=== PATIENT | male | born 1950 | race Caucasian/White ===

== ENCOUNTER 2017-08-27 08:31 | Observation (INO) ==
--- NOTE | 2017-08-27 08:42 | Emergency Department Note ---
Disposition Clinical Impression: Lower gastrointestinal hemorrhage Disposition: Admitted As Inpatient Condition: Fair General Adult HPI - General Chief complaint: ED GI Bleed Stated complaint: rectal bleeding Time Seen by Provider: 08/27/17 08:40 Source: patient Limitations: no limitations - History of Present Illness Pain Scale: 0 - Related Data Home Medications Medication Instructions Recorded Confirmed Allopurinol [Zyloprim 100 MG] 100 mg PO DAILY 08/27/17 08/27/17 Aspirin Enteric Coated [Aspirin EC] 325 mg PO DAILY 08/27/17 08/27/17 Atorvastatin [Lipitor] 10 mg PO HS 08/27/17 08/27/17 Clopidogrel [Plavix] 75 mg PO DAILY 08/27/17 08/27/17 Isosorbide MONOnitrate (24 HR) 60 mg PO DAILY 08/27/17 08/27/17 [Imdur] Lisinopril [Zestril] 5 mg PO DAILY 08/27/17 08/27/17 Lutein 20 mg PO DAILY 08/27/17 08/27/17 Metoprolol Succinate [Toprol Xl] 50 mg PO DAILY 08/27/17 08/27/17 Multivit-Min/FA/Lycopen/Lutein 1 tab PO DAILY 08/27/17 08/27/17 [Adults 50+ Multivitamin Tablet] Naproxen Sodium [All Day Pain 440 mg PO DAILY 08/27/17 08/27/17 Relief] Potassium Citrate [Urocit-K] 1 tab PO BID 08/27/17 08/27/17 Spironolactone [Aldactone] 12.5 mg PO DAILY 08/27/17 08/27/17 metFORMIN [Glucophage] 500 mg PO BIDWM 08/27/17 08/27/17 Allergies Allergy/AdvReac Type Severity Reaction Status Date / Time Hydromorphone [From Dilaudid] AdvReac Vomiting Verified 08/27/17 08:37 morphine AdvReac See Verified 08/27/17 08:37 Comments Oxycodone [From Percocet] AdvReac Hallucinati Verified 08/27/17 08:37 ng Past Medical History - Past Medical History Medical history: Reports: coronary artery disease, diabetes, hyperlipidemia, hypertension, kidney stones, myocardial infarction Psychiatric history: Reports: no psych history - Social History Smoking Status: Never smoker Smokeless Tobacco Status: No Alcohol use: Reports: none Drug use: Reports: none Physical Exam - General Limitations: no limitations General appearance: alert, in no apparent distress Course Vital Signs Temperature 97.7 F 08/27/17 08:33 Pulse Rate 83 08/27/17 08:33 Respiratory Rate 16 08/27/17 08:33 Blood Pressure 165/77 08/27/17 08:33 O2 Sat by Pulse Oximetry 98 08/27/17 08:33 Temperature 98.0 F 08/27/17 14:59 Pulse Rate 66 08/27/17 14:59 Respiratory Rate 14 08/27/17 14:59 Blood Pressure 124/77 08/27/17 14:59 O2 Sat by Pulse Oximetry 98 08/27/17 14:59 Oxygen Delivery Oxygen Delivery Room Air Medical Decision Making - Lab Data Result diagrams: 08/27/17 14:01 08/27/17 08:50 Lab Results 08/27/17 08/27/17 08/27/17 Range/Units 08:50 08:50 08:50 WBC 5.2 (4.3-11.1) K/mcL RBC 3.69 L (4.19-5.50) M/mcL Hgb 11.4 L (12.9-16.9) g/dL Hct 33.5 L (37.5-50.1) % MCV 90.8 (83.0-100.0) fL MCH 30.9 (28.0-33.3) pg MCHC 34.0 (31.6-35.5) g/dL RDW 13.7 (11.5-14.5) % Plt Count 159 (140-400) K/mcL MPV 9.6 (9.4-12.4) fL Immature Gran % 0.4 (0-4) % Seg Neutrophils % 75.2 % Lymphocytes % 15.2 % Monocytes % 7.7 % Eosinophils % 1.3 % Basophils % 0.2 % Neutrophils # 3.9 (1.6-8.9) K/mcL Lymphocytes # 0.8 (0.6-4.6) K/mcL Monocytes # 0.4 (0.0-1.3) K/mcL Eosinophils # 0.1 (0.0-0.6) K/mcL Basophils # 0.0 (0.0-0.2) K/mcL PT 10.9 (9.4-12.1) Seconds INR 1.0 APTT 24.2 L (26.0-36.0) Seconds Sodium 134 L (136-145) mEq/L Potassium 4.3 (3.5-5.1) mEq/L Chloride 108 H (98-107) mEq/L Carbon Dioxide 20 L (23-29) mEq/L BUN 26 H (8-23) mg/dL Creatinine 1.05 (0.70-1.30) mg/dL Est GFR ( Amer) > 60 (> 60) Est GFR (Non-Af Amer) > 60 (> 60) BUN/Creatinine Ratio 25 (6-26) Glucose 290 H (70-105) mg/dL Calculated Osmolality 293 (280-300) Calcium 8.7 (8.6-10.3) mg/dL Total Bilirubin 0.3 (0.3-1.0) mg/dL AST 17 (13-39) Units/L ALT 18 (7-52) Units/L Alkaline Phosphatase 55 (34-104) Units/L Serum Total Protein 6.1 L (6.4-8.9) g/dL Albumin 3.9 (3.5-5.7) g/dL Globulin 2.2 L (2.4-3.5) g/dL Albumin/Globulin Ratio 1.8 (1.1-2.2) Blood Type Antibody Screen 08/27/17 Range/Units 08:50 WBC (4.3-11.1) K/mcL RBC (4.19-5.50) M/mcL Hgb (12.9-16.9) g/dL Hct (37.5-50.1) % MCV (83.0-100.0) fL MCH (28.0-33.3) pg MCHC (31.6-35.5) g/dL RDW (11.5-14.5) % Plt Count (140-400) K/mcL MPV (9.4-12.4) fL Immature Gran % (0-4) % Seg Neutrophils % % Lymphocytes % % Monocytes % % Eosinophils % % Basophils % % Neutrophils # (1.6-8.9) K/mcL Lymphocytes # (0.6-4.6) K/mcL Monocytes # (0.0-1.3) K/mcL Eosinophils # (0.0-0.6) K/mcL Basophils # (0.0-0.2) K/mcL PT (9.4-12.1) Seconds INR APTT (26.0-36.0) Seconds Sodium (136-145) mEq/L Potassium (3.5-5.1) mEq/L Chloride (98-107) mEq/L Carbon Dioxide (23-29) mEq/L BUN (8-23) mg/dL Creatinine (0.70-1.30) mg/dL Est GFR ( Amer) (> 60) Est GFR (Non-Af Amer) (> 60) BUN/Creatinine Ratio (6-26) Glucose (70-105) mg/dL Calculated Osmolality (280-300) Calcium (8.6-10.3) mg/dL Total Bilirubin (0.3-1.0) mg/dL AST (13-39) Units/L ALT (7-52) Units/L Alkaline Phosphatase (34-104) Units/L Serum Total Protein (6.4-8.9) g/dL Albumin (3.5-5.7) g/dL Globulin (2.4-3.5) g/dL Albumin/Globulin Ratio (1.1-2.2) Blood Type O POSITIVE Antibody Screen NEGATIVE Attestation Statement - Attestation Attestation: I examined this patient and my medical decision-making was reviewed with the Resident Physician. I agree with the documented findings, disposition and treatment plan as described except to the extent set forth below. [id number] time provided Triage note and vitals reviewed by me. Patient presents with bright red blood per rectum. He takes Plavix. Ambulatory to the treatment area without evidence of acute distress. Normotensive and not tachycardic
[2017-08-27 09:03] LABS: Basophils % 0.2 %; Eosinophils # 0.1 K/mcL (0.0-0.6); Eosinophils % 1.3 %; Hematocrit 33.5 % (37.5-50.1); Hemoglobin 11.4 g/dL (12.9-16.9); Immature Granulocytes % 0.4 % (0-4); Lymphocytes # 0.8 K/mcL (0.6-4.6); Lymphocytes % 15.2 %; Mean Corpuscular Hemoglobin 30.9 pg (28.0-33.3); Mean Corpuscular Volume 90.8 fL (83.0-100.0); Mean Platelet Volume 9.6 fL (9.4-12.4); Monocytes # 0.4 K/mcL (0.0-1.3); Monocytes % 7.7 %; Neutrophils # 3.9 K/mcL (1.6-8.9); Platelet Count 159 K/mcL (140-400); Red Blood Count 3.69 M/mcL (4.19-5.50); Red Cell Distribution Width 13.7 % (11.5-14.5); Segmented Neutrophils % 75.2 %
[2017-08-27 09:08] LABS: Prothrombin Time 10.9 Seconds (9.4-12.1)
[2017-08-27 09:10] LABS: Activated Partial Thrombo Time 24.2 Seconds (26.0-36.0)
[2017-08-27 09:26] LABS: Alanine Aminotransferase 18 Units/L (7-52); Albumin 3.9 g/dL (3.5-5.7); Alkaline Phosphatase 55 Units/L (34-104); Aspartate Amino Transferase 17 Units/L (13-39); BUN/Creatinine Ratio 25 (6-26); Bilirubin,Total 0.3 mg/dL (0.3-1.0); Blood Urea Nitrogen 26 mg/dL (8-23); Calcium 8.7 mg/dL (8.6-10.3); Carbon Dioxide 20 mEq/L (23-29); Chloride 108 mEq/L (98-107); Glucose 290 mg/dL (70-105); Osmolality,Calculated 293 (280-300); Potassium 4.3 mEq/L (3.5-5.1); Sodium 134 mEq/L (136-145); Total Protein 6.1 g/dL (6.4-8.9); eGFR For African Americans > 60 (> 60); eGFR For Non-African Americans > 60 (> 60)
[2017-08-27 09:27] LABS: Albumin/Globulin Ratio 1.8 (1.1-2.2); Globulin 2.2 g/dL (2.4-3.5)
--- NOTE | 2017-08-27 10:12 | Emergency Department Note ---
Disposition Clinical Impression: Lower gastrointestinal hemorrhage Disposition: Admitted As Inpatient Condition: Fair Referrals: Aidan Szymanski DO [Primary Care Provider] - Forms: ED Satisfaction Letter Time of Disposition: 10:42 GI Bleed HPI - General Chief complaint: ED GI Bleed Stated complaint: rectal bleeding Time Seen by Provider: 08/27/17 08:40 Source: patient Mode of arrival: ambulatory Limitations: no limitations Nursing Notes Reviewed: Yes Vital Signs Reviewed: Yes - History of Present Illness HPI Narrative: 59-year-old male presenting to the emergency department complaining of rectal bleeding. Patient states she has had 2-3 days of bright red blood per rectum he says it is in the toilet as well as on his stools. He has had no black stools. He did have an episode of this approximately one month ago so went away on its own he denied a colonoscopy. Last colonoscopy was 10 years ago this and was normal his for medication since then. He has had no abdominal surgeries. He has had no generalized weakness or not feeling well prior to this episode. He is mainly here just because of his increasing and rectal bleeding. Patient says he has no abdominal pain no chest pain or shortness of breath. He has no other complaints this time including fevers, chills, nausea, vomiting, headache, blurry vision, neck pain, back pain, pain or tingling on the arms or legs generalized weakness changes in bowel movements, pain with urination. - Related Data Allergies Allergy/AdvReac Type Severity Reaction Status Date / Time acetaminophen [From Percocet] AdvReac Hallucinati Verified 08/27/17 08:37 ng Hydromorphone [From Dilaudid] AdvReac Vomiting Verified 08/27/17 08:37 morphine AdvReac See Verified 08/27/17 08:37 Comments Oxycodone [From Percocet] AdvReac Hallucinati Verified 08/27/17 08:37 ng Review of Systems: 10 point review of systems done and negative unless otherwise stated in the history of present illness.y All systems ED: reviewed and negative except as stated. Review of Systems: As Per HPI Past Medical History - Past Medical History Attestation: Yes The following information was validated with the patient. Source: patient Medical history: Reports: coronary artery disease, diabetes, hyperlipidemia, hypertension, kidney stones, myocardial infarction Psychiatric history: Reports: no psych history - Social History Smoking Status: Never smoker Smokeless Tobacco Status: No Alcohol use: Reports: none Drug use: Reports: none Physical Exam - General Limitations: no limitations General appearance: alert, in no apparent distress - Head Head exam: atraumatic, normocephalic, normal inspection - Eye Eye exam: Present: normal appearance, PERRL, EOMI - ENT ENT exam: normal exam, normal oropharynx, mucous membranes moist - Neck Neck exam: Present: normal inspection, full ROM, trachea midline - Chest Chest inspection: Present: normal inspection, symmetric chest wall rise - Respiratory Respiratory exam: Present: normal lung sounds bilaterally - Cardiovascular Cardiovascular exam: Present: regular rate, normal rhythm, normal heart sounds - Abdominal Exam Abdominal exam: Present: soft, Non-Tender, normal bowel sounds. Absent: tenderness, distention, guarding, rebound, rigidity, heel tap sign - Rectal Exam Machine Set Up Operator present during exam: Yes Rectal exam: Present: normal inspection, normal rectal tone, heme (+) stool. Absent: black stool, fecal impaction, hemorrhoids, mass, tenderness - Extremities Exam Extremities exam: Present: normal inspection, full ROM. Absent: tenderness, pedal edema - Expanded Lower Extremity Exam Neurovascular/Tendon exam: Present: normal capillary refill. Absent: pulse deficit, motor deficit, sensory deficit, tendon deficit - Back Exam Back exam: Present: normal inspection, full ROM. Absent: tenderness, CVA tenderness (R), CVA tenderness (L) - Neurological Exam Neurological exam: Present: alert, oriented X3 - Skin Skin exam: Present: warm, dry, intact, normal color Course Course Narrative: 67-year-old male just in the emergency department via rectal bleeding. We will get CBC, BMP, EKG as well as lipase. There is no advanced imaging at this time. We will do rectal exam with Hemoccult. Disposition pending results Vital Signs Temperature 97.7 F 08/27/17 08:33 Pulse Rate 83 08/27/17 08:33 Respiratory Rate 16 08/27/17 08:33 Blood Pressure 165/77 08/27/17 08:33 O2 Sat by Pulse Oximetry 98 08/27/17 08:33 Temperature 97.7 F 08/27/17 08:33 Pulse Rate 67 08/27/17 10:01 Respiratory Rate 20 08/27/17 10:01 Blood Pressure 115/55 08/27/17 10:01 O2 Sat by Pulse Oximetry 97 08/27/17 10:01 Oxygen Delivery Oxygen Delivery Room Air GI Bleed - MDM Narrative Medical decision making narrative: 59-year-old male presents to the emergency department complaining of rectal bleeding. He did have a positive Hemoccult via digital rectal exam. Patient tolerated it well. He has no abdominal pain at this time is no advanced imaging needed. He has not had a colostomy in 10 years. Due to patient being on Plavix and he has had a 2. drop in his hemoglobin we felt that further evaluation is needed via admission. Spoke with the hospitalist Dr. Anderson who agreed to admit the patient to their service. Patient is admitted to the hospitalist service in stable condition. All other labs were normal. - Medical Records Medical records reviewed: Yes I reviewed the patient's medical records. - Lab Data Lab results reviewed: Yes I reviewed the patient's lab results. Result diagrams: 08/27/17 08:50 08/27/17 08:50 Lab Results 08/27/17 08/27/17 08/27/17 Range/Units 08:50 08:50 08:50 WBC 5.2 (4.3-11.1) K/mcL RBC 3.69 L (4.19-5.50) M/mcL Hgb 11.4 L (12.9-16.9) g/dL Hct 33.5 L (37.5-50.1) % MCV 90.8 (83.0-100.0) fL MCH 30.9 (28.0-33.3) pg MCHC 34.0 (31.6-35.5) g/dL RDW 13.7 (11.5-14.5) % Plt Count 159 (140-400) K/mcL MPV 9.6 (9.4-12.4) fL Immature Gran % 0.4 (0-4) % Seg Neutrophils % 75.2 % Lymphocytes % 15.2 % Monocytes % 7.7 % Eosinophils % 1.3 % Basophils % 0.2 % Neutrophils # 3.9 (1.6-8.9) K/mcL Lymphocytes # 0.8 (0.6-4.6) K/mcL Monocytes # 0.4 (0.0-1.3) K/mcL Eosinophils # 0.1 (0.0-0.6) K/mcL Basophils # 0.0 (0.0-0.2) K/mcL PT 10.9 (9.4-12.1) Seconds INR 1.0 APTT 24.2 L (26.0-36.0) Seconds Sodium 134 L (136-145) mEq/L Potassium 4.3 (3.5-5.1) mEq/L Chloride 108 H (98-107) mEq/L Carbon Dioxide 20 L (23-29) mEq/L BUN 26 H (8-23) mg/dL Creatinine 1.05 (0.70-1.30) mg/dL Est GFR ( Amer) > 60 (> 60) Est GFR (Non-Af Amer) > 60 (> 60) BUN/Creatinine Ratio 25 (6-26) Glucose 290 H (70-105) mg/dL Calculated Osmolality 293 (280-300) Calcium 8.7 (8.6-10.3) mg/dL Total Bilirubin 0.3 (0.3-1.0) mg/dL AST 17 (13-39) Units/L ALT 18 (7-52) Units/L Alkaline Phosphatase 55 (34-104) Units/L Serum Total Protein 6.1 L (6.4-8.9) g/dL Albumin 3.9 (3.5-5.7) g/dL Globulin 2.2 L (2.4-3.5) g/dL Albumin/Globulin Ratio 1.8 (1.1-2.2) Blood Type Antibody Screen 08/27/17 Range/Units 08:50 WBC (4.3-11.1) K/mcL RBC (4.19-5.50) M/mcL Hgb (12.9-16.9) g/dL Hct (37.5-50.1) % MCV (83.0-100.0) fL MCH (28.0-33.3) pg MCHC (31.6-35.5) g/dL RDW (11.5-14.5) % Plt Count (140-400) K/mcL MPV (9.4-12.4) fL Immature Gran % (0-4) % Seg Neutrophils % % Lymphocytes % % Monocytes % % Eosinophils % % Basophils % % Neutrophils # (1.6-8.9) K/mcL Lymphocytes # (0.6-4.6) K/mcL Monocytes # (0.0-1.3) K/mcL Eosinophils # (0.0-0.6) K/mcL Basophils # (0.0-0.2) K/mcL PT (9.4-12.1) Seconds INR APTT (26.0-36.0) Seconds Sodium (136-145) mEq/L Potassium (3.5-5.1) mEq/L Chloride (98-107) mEq/L Carbon Dioxide (23-29) mEq/L BUN (8-23) mg/dL Creatinine (0.70-1.30) mg/dL Est GFR ( Amer) (> 60) Est GFR (Non-Af Amer) (> 60) BUN/Creatinine Ratio (6-26) Glucose (70-105) mg/dL Calculated Osmolality (280-300) Calcium (8.6-10.3) mg/dL Total Bilirubin (0.3-1.0) mg/dL AST (13-39) Units/L ALT (7-52) Units/L Alkaline Phosphatase (34-104) Units/L Serum Total Protein (6.4-8.9) g/dL Albumin (3.5-5.7) g/dL Globulin (2.4-3.5) g/dL Albumin/Globulin Ratio (1.1-2.2) Blood Type O POSITIVE Antibody Screen NEGATIVE - EKG Data EKG attestation: Yes I reviewed and interpreted this EKG. EKG results narrative: EKG done at 0906 review myself needs anxiousness room air is 72, NM 160, QRS 94 , QTc 354 with a leftward axis. There is no acute ST changes no acute T-wave changes or signs of ischemia. No signs of heart strength, hypertrophy, heart block. No signs of diabetes OB/Brugada syndrome. Overall unchanged EKG when the person with all done 09/15/14
[2017-08-27] MEDS ORDERED: Naloxone 0.4 MG/ML INJ IVP PRN (11:17)
[2017-08-27] MEDS ORDERED: Acetaminophen 325 MG TABLET PO PRN (11:17)
[2017-08-27] MEDS ORDERED: D5% in Water 1,000 ML IVC PRN (11:22)
[2017-08-27] MEDS ORDERED: *HR* Dextrose 50 % in Water (Syg) 50 ML SYRINGE IVP PRN (11:22)
[2017-08-27] MEDS ORDERED: Dextrose Gel 15 GM/37.5 ML TUBE PO PRN ×2 (11:22)
--- NOTE | 2017-08-27 11:40 | Internal Med History&Physical ---
Date of Encounter: 08/27/17 Time of Encounter: 11:30 Assessment and Plan (1) Lower gastrointestinal hemorrhage Current visit: Yes Status: Acute Patient presenting with hematochezia. Most likely painless diverticular bleeding exacerbated due to use of aspirin and Plavix and naproxen. Will monitor blood counts. Keep patient on IV PPI. If hemoglobin levels are stable , consider outpatient colonoscopy. He will need inpatient colonoscopy if he continues to bleed. High risk for complications due to acute GI bleed. (2) Coronary artery disease Current visit: Yes Status: Chronic Patient with history of coronary artery disease. On aspirin 325 and Plavix at home. Will hold his medications for now due to GI bleed. Consider changing aspirin to 81 mg at time of discharge if patient's bleeding improves. Qualifiers: Coronary Disease-Associated Artery/Lesion type: [place] artery [place] vs. transplanted heart: [place] heart Associated angina: without angina Qualified Code(s): I25.10 - Atherosclerotic heart disease of [place] coronary artery without angina pectoris (3) Essential hypertension Current visit: Yes Status: Chronic Monitor blood pressure. Resume home medications. (4) Diabetes mellitus Current visit: Yes Status: Chronic On metformin at home. Will place him on sliding scale insulin coverage here. 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 Sr is a 67 year old male patient with history of coronary artery disease status post PCI and stents on aspirin and Plavix presented to the ER with complaints of bright red bleeding per rectum. Symptoms began yesterday afternoon and his had about 8 episodes of blood per rectum. He is also had some diarrhea. He denies any abdominal pain. No nausea or vomiting. No hematemesis. He reports similar symptoms 4 weeks back which spontaneously resolved within a few hours. He went to see his primary care provider after that and was told that it could possibly be from an esophageal tear. He had a colonoscopy 10 years back and was found to have diverticulosis. No polyps. It has been several years since his last stent but he has been advised to continue taking aspirin and Plavix. He is on 325 mg of aspirin. He denies any prior history of stroke. He does have a pacemaker/AICD in place. Patient also takes naproxen daily for arthritis. Past Med Surg Social Fam HX - Past Medical History Attestation: Yes The following information was validated with the patient. Source: patient Medical history: coronary artery disease, diabetes, hyperlipidemia, hypertension , kidney stones, myocardial infarction Psychiatric history: no psych history - Past Surgical History Surgical History: AICD, pacemaker - Social History Smoking Status: Never smoker Smokeless Tobacco Status: No Alcohol use: none Drug use: none - Additional Family History Additional family history: Reviewed and found to be noncontributory at this time Internal Medicine - H&P: Meds Allopurinol [Zyloprim 100 MG] 100 mg PO DAILY 08/27/17 [History] Aspirin Enteric Coated [Aspirin EC] 325 mg PO DAILY 08/27/17 [History] Atorvastatin [Lipitor] 10 mg PO HS 08/27/17 [History] Clopidogrel [Plavix] 75 mg PO DAILY 08/27/17 [History] Isosorbide MONOnitrate (24 HR) [Imdur] 60 mg PO DAILY 08/27/17 [History] Lisinopril [Zestril] 5 mg PO DAILY 08/27/17 [History] Lutein 20 mg PO DAILY 08/27/17 [History] Metoprolol Succinate [Toprol Xl] 50 mg PO DAILY 08/27/17 [History] Multivit-Min/FA/Lycopen/Lutein [Adults 50+ Multivitamin Tablet] 1 tab PO DAILY 08/27/17 [History] Naproxen Sodium [All Day Pain Relief] 440 mg PO DAILY 08/27/17 [History] Potassium Citrate [Urocit-K] 1 tab PO BID 08/27/17 [History] Spironolactone [Aldactone] 12.5 mg PO DAILY 08/27/17 [History] metFORMIN [Glucophage] 500 mg PO BIDWM 08/27/17 [History] 3 Allergy/AdvReac Type Severity Reaction Status Date / Time Hydromorphone [From Dilaudid] AdvReac Vomiting Verified 08/27/17 08:37 morphine AdvReac See Verified 08/27/17 08:37 Comments Oxycodone [From Percocet] AdvReac Hallucinati Verified 08/27/17 08:37 ng All Systems PM: A 10-system review of systems was performed and is negative for pertinent findings except as documented above in the HPI. - Constitutional Constitutional: no chills, no fever(s), no night sweats - EENT Eyes: no change in vision, no discharge, no pain, no photophobia Ears: no ear discharge, no ear pain, no tinnitus Nose, mouth and throat: no dysphagia, no nasal discharge, no neck pain, no sore throat - Cardiovascular Cardiovascular ROS IM: no chest pain, no diaphoresis, no dyspnea, no lightheadedness, no palpitations, no syncope - Respiratory Respiratory: no cough, no dyspnea, no wheezing, no excessive phlegm production - Gastrointestinal Gastrointestinal: hematochezia, no abdominal pain, no diarrhea, no hematemesis, no melena, no nausea, no vomiting - Musculoskeletal Musculoskeletal ROS IM: no numbness, no tingling - Integumentary Integumentary IM: no rash, no unusual bruising - Neurological Neurological ROS: no confusion, no convulsions, no focal weakness, no numbness, no tingling, no tremor(s) - Hematologic/Lymphatic Hematologic/Lymphatic: no easy bruising - Constitutional Vitals: Temp Pulse Resp BP Pulse Ox 97.7 F 67 20 114/58 97 08/27/17 08:33 08/27/17 10:01 08/27/17 10:38 08/27/17 10:38 08/27/17 10:01 General appearance: Present: cooperative, A&O X 3, answers questions appropriately - Eye Eye exam: Present: EOMI, PERRL, conjuntiva pink, sclera anicteric - Neck Neck exam general surgery: Present: supple, trachea midline. Absent: lymphadenopathy - Respiratory Respiratory exam: Present: CTAB. Absent: accessory muscle use, rales, rhonchi, wheezes - Cardiovascular Cardiovascular exam: Present: RRR, +S1, +S2. Absent: diastolic murmur, gallop, rubs, systolic murmur - GI/Abdominal GI/Abdominal exam: Present: normal bowel sounds, soft, no peritoneal signs. Absent: distended, tenderness - Extremities Exam Extremities exam: Present: warm, radial pulses palpable and symmetrical. Absent : calf tenderness, cyanotic, pedal edema - Neurological Exam Neurological exam: Present: alert, CN II-XII intact, oriented X3, no focal deficits. Absent: facial droop, speech deficit - Skin Skin exam: Present: dry, intact Internal Med - H&P Results - Labs CBC & Chem 7: 08/27/17 08:50 08/27/17 08:50
[2017-08-27] MEDS ORDERED: Ringers Solution, Lactated 1,000 ML IVC SCH (11:45)
[2017-08-27] MEDS: Insulin LISPRO 300 UNITS/3 ML VIAL SQ SCH ×3 (13:16→21:36)
[2017-08-27 14:47] LABS: Hematocrit 31.2 % (37.5-50.1); Hemoglobin 10.4 g/dL (12.9-16.9)
[2017-08-27] MEDS: Pantoprazole 40 MG VIAL IVP SCH (18:52)
[2017-08-27] MEDS: Potassium Citrate 10 MEQ TABLET.ER PO SCH (20:17)
[2017-08-27 20:26] LABS: Hematocrit 31.3 % (37.5-50.1); Hemoglobin 10.3 g/dL (12.9-16.9)
[2017-08-28] MEDS: Pantoprazole 40 MG VIAL IVP SCH ×2 (04:45→16:33)
[2017-08-28 05:16] LABS: Basophils % 0.5 %; Eosinophils # 0.1 K/mcL (0.0-0.6); Hematocrit 32.4 % (37.5-50.1); Hemoglobin 10.6 g/dL (12.9-16.9); Immature Granulocytes % 0.3 % (0-4); Lymphocytes % 24.9 %; Mean Corpuscular HGB Conc 32.7 g/dL (31.6-35.5); Mean Corpuscular Volume 91.8 fL (83.0-100.0); Mean Platelet Volume 9.6 fL (9.4-12.4); Monocytes # 0.4 K/mcL (0.0-1.3); Monocytes % 10.9 %; Neutrophils # 2.4 K/mcL (1.6-8.9); Nucleated Red Blood Cells 0.8 /100 WBC (0); Platelet Count 153 K/mcL (140-400); Red Blood Count 3.53 M/mcL (4.19-5.50); Red Cell Distribution Width 13.8 % (11.5-14.5); Segmented Neutrophils % 60.4 %
[2017-08-28 05:28] LABS: BUN/Creatinine Ratio 17 (6-26); Blood Urea Nitrogen 19 mg/dL (8-23); Calcium 8.7 mg/dL (8.6-10.3); Carbon Dioxide 28 mEq/L (23-29); Chloride 106 mEq/L (98-107); Glucose 150 mg/dL (70-105); Osmolality,Calculated 293 (280-300); Potassium 4.1 mEq/L (3.5-5.1); Sodium 139 mEq/L (136-145); eGFR For African Americans > 60 (> 60); eGFR For Non-African Americans > 60 (> 60)
[2017-08-28] MEDS: Multivit/Ca/Min/Fe/FA 1 TAB TABLET PO SCH (08:58)
[2017-08-28] MEDS: Isosorbide MONOnitrate (24 HR) 60 MG TAB.ER.24H PO SCH (08:58)
[2017-08-28] MEDS: Spironolactone 25 MG TABLET PO SCH (08:58)
[2017-08-28] MEDS: Potassium Citrate 10 MEQ TABLET.ER PO SCH ×2 (08:59→22:09)
[2017-08-28] MEDS: Metoprolol XL (24 HR) Succ 50 MG TAB.ER.24H PO SCH (08:59)
[2017-08-28] MEDS: Insulin LISPRO 300 UNITS/3 ML VIAL SQ SCH ×6 (08:59→23:03)
[2017-08-28] MEDS ORDERED: NON-FORMULARY MEDICATION 1 EACH EACH (Lutein [Lutein] 20 MG) PO SCH (09:00)
[2017-08-28 10:51] LABS: Estimated Average Glucose 169 mg/dl; Hemoglobin A1C 7.5 %
--- NOTE | 2017-08-28 11:54 | Gastroenterology Consult Note ---
<Staci Wallace - Last Filed: 08/28/17 11:57> Date of Encounter: 08/28/17 Time of Encounter: 09:50 - Assessment and plan (1) Lower gastrointestinal hemorrhage Status: Acute Assessment and plan: Pt presents with bright red rectal bleeding. He is on plavix at home, has been held since Monday. Will plan for colonoscopy tomorrow. Pt and his advised risks and benefits and they verbalize understanding.Monitor H&H, transfuse if needed. - Time Spent With Patient Total time spent is greater than 50% in coordination of care (as documented) at patient's floor/unit and/or counseling patient: GI History of Present Illness - Data of Consult Patient: new to practice Consult date: 08/28/17 Requesting Physician: Flavio Morales - Consult Narrative Reason for consult: rectal bleeding History of present illness: Mr. Sr is a 67 year old male patient with history of coronary artery disease status post PCI and stents in 2010. He is on aspirin and Plavix at home. He presented to the ER with complaints of bright red bleeding per rectum. Symptoms began on Monday and he reports continued bright red rectal bleeding this morning. He also reports some diarrhea. He denies any abdominal pain, nausea or vomiting, GERD sx or hematemesis. He reports similar symptoms 4 weeks back which spontaneously resolved. He denies any prior history of stroke. He does have a pacemaker/AICD in place. Patient also takes naproxen daily for arthritis. Colonoscopy: 10 years ago diverticulosis [place] EGD: obdulia NSAIDS/ASA: ASA 325 mg Anticoagulants: Plavix (last dose on Monday) Past Med Surg Social Fam HX - Past Medical History Medical history: coronary artery disease, diabetes, hyperlipidemia, hypertension , kidney stones, myocardial infarction Psychiatric history: no psych history - Past Surgical History Surgical History: AICD, pacemaker - Social History Smoking Status: Never smoker Smokeless Tobacco Status: No Alcohol use: none Drug use: none - Family History Mother History Unknown: Yes Adopted: [place]: Fiona Sr Family Member Ethnicity: Non- Living Status: Still Living Hx Family Cardiac Disorders: Yes (LA) Hx Family Respiratory Disorders: No Hx Family Cancer: No Hx Family GI Disorders: No Hx Family Genitourinary Disorders: No Hx Family Endocrine Disorder: No Hx Family Musculoskeletal Disorders: Yes (arthritis) Hx Family Neuromuscular Disorders: No Hx Family Neurologic Disorders: Yes (stroke) Hx Family HEENT Disorders: No Hx Family Autoimmune Disorders: Yes (arthritis) Hx Family Reproductive Disorders: No Hx Family Psychosocial Disorders: Yes (dementia) Hx Family Medical Disorders: No Review of Systems: GI: as per CHITIMACHA GENERAL: denies fever, has some chills EYES: denies yellow discoloration ENT: denies pain with swallowing or difficulty swallowing CARDIO: denies chest pain, palpitations RESP: No Shortness of breath with exertion : denies change in color of urine NEURO: weakness HEME: Denies any bruising MS: chronic back and joint pain. DERM: denies rash or itching PSYCH: Denies history of anxiety or depression - Constitutional Vitals: Temp Pulse Resp BP Pulse Ox 97.6 F 67 18 98/59 96 08/28/17 11:19 08/28/17 11:19 08/28/17 11:19 08/28/17 11:19 08/28/17 11:19 Exam: CONSTITUTIONAL:~alert, no acute distress.~HEAD:~normocephalic.~EYES:~no jaundice.~NECK:~no obvious swelling.~HEART:~regular rate and rhythm, no murmurs , pacemaker noted to left anterior chest.~LUNGS:~bilateral good air entry.~ ABDOMEN:~non distended, soft, non tender, no masses palpable, no organomegaly, RLQ scar well healed.~RECTAL EXAM:~Deferred.~EXTREMITIES:~no clubbing, cyanosis or edema.~SKIN:~no stigmata of chronic liver disease.~NEUROLOGIC:~no obvious focal defect.~~~~ Results - Labs CBC & Chem 7: 08/28/17 04:46 08/28/17 04:46 Labs: Last Result Calcium 8.7 mg/dL (8.6-10.3) 08/28/17 04:46 Stool Occult Blood Positive (Negative) A 08/28/17 07:00 Entire Visit Hgb 10.6 g/dL (12.9-16.9) L 08/28/17 04:46 Hct 32.4 % (37.5-50.1) L 08/28/17 04:46 PT 10.9 Seconds (9.4-12.1) 08/27/17 08:50 Total Bilirubin 0.3 mg/dL (0.3-1.0) 08/27/17 08:50 AST 17 Units/L (13-39) 08/27/17 08:50 ALT 18 Units/L (7-52) 08/27/17 08:50 - ABG ABG results: PT/INR, D-dimer PT 10.9 Seconds (9.4-12.1) 08/27/17 08:50 Consult Discharge Plan - Plan Referrals: Nessa,Aidan Bobo DO [Primary Care Provider] - (have patient call and schedule his own appointment) <Jolene Pina - Last Filed: 09/01/17 10:12> Date of Encounter: 08/28/17 Time of Encounter: 13:00 - Time Spent With Patient Total time spent is greater than 50% in coordination of care (as documented) at patient's floor/unit and/or counseling patient: GI History of Present Illness - Data of Consult Requesting Physician: Flavio Morales - Consult Narrative History of present illness: Mr. Sr is a 67 year old male - Constitutional Vitals: Temp Pulse Resp BP Pulse Ox 98.0 F 71 16 134/72 96 08/30/17 08:14 08/30/17 08:14 08/30/17 08:14 08/30/17 08:14 08/30/17 08:14 Results - Labs CBC & Chem 7: 08/30/17 05:06 08/30/17 05:06 Labs: Last Result Calcium 8.8 mg/dL (8.6-10.3) 08/30/17 05:06 Stool Occult Blood Positive (Negative) A 08/28/17 07:00 Entire Visit Hgb 9.8 g/dL (12.9-16.9) L 08/30/17 05:06 Hct 29.8 % (37.5-50.1) L 08/30/17 05:06 PT 10.9 Seconds (9.4-12.1) 08/27/17 08:50 Total Bilirubin 0.3 mg/dL (0.3-1.0) 08/27/17 08:50 AST 17 Units/L (13-39) 08/27/17 08:50 ALT 18 Units/L (7-52) 08/27/17 08:50 - ABG ABG results: PT/INR, D-dimer PT 10.9 Seconds (9.4-12.1) 08/27/17 08:50 - Attending Attestation I have personally performed a face to face evaluation on this patient. I have reviewed and agree with the care plan. History and Exam by me shows:
--- NOTE | 2017-08-28 12:10 | Internal Med Progress Note ---
Date of Encounter: 08/28/17 Time of Encounter: 12:08 - Assessment and plan (1) Lower gastrointestinal hemorrhage Current Visit: Yes Status: Acute Assessment and plan: Trend H&H. Hold aspirin and Plavix. He takes naproxen daily as well for arthritis. Blood pressure is marginal. Otherwise hemodynamically stable. GI is consulted with plans for colonoscopy tomorrow. Continue PPI. (2) Coronary artery disease Current Visit: Yes Status: Chronic Assessment and plan: Continue statin. The patient takes a beta makayla as well. Holding aspirin and Plavix. Qualifiers: Coronary Disease-Associated Artery/Lesion type: [place] artery [place] vs. transplanted heart: [place] heart Associated angina: without angina Qualified Code(s): I25.10 - Atherosclerotic heart disease of [place] coronary artery without angina pectoris (3) Diabetes mellitus Current Visit: Yes Status: Chronic Assessment and plan: Continue insulin sliding scale. Continue Accu-Cheks. Qualifiers: Diabetes mellitus type: type 2 Diabetes mellitus assisted insulin use: without longitudinal float operator use Diabetes mellitus complication status: with circulatory complication Diabetes mellitus complication detail: with other circulatory complications Qualified Code(s): E11.59 - Type 2 diabetes mellitus with other circulatory complications (4) Essential hypertension Current Visit: Yes Status: Chronic Assessment and plan: Patient's blood pressure is borderline. He is already received his beta makayla , lisinopril, spironolactone. His blood pressure now is borderline. We will continue to monitor. (5) DVT prophylaxis Current Visit: Yes Status: Acute Assessment and plan: SCDs given GI bleed. - Subjective Interval history: Patient was seen and examined. No acute events. Admitted for GI bleed. Hemodynamically stable. Has been seeing bright red blood per rectum for about 2 days. Takes aspirin and Plavix. Hemoglobin on admission was 11.4. Previous hemoglobin back in 2014 was 14.9. Hemoglobin this morning is 10.6. - Constitutional Vitals: Temp Pulse Resp BP Pulse Ox 97.6 F 67 18 98/59 96 08/28/17 11:19 08/28/17 11:19 08/28/17 11:19 08/28/17 11:19 08/28/17 11:19 General appearance: Present: cooperative, A&O X 3, answers questions appropriately Exam: GEN: NAD CVS: RRR. S1, S2, No m/r/g RESP: CTAB ABD: Soft, NT, ND, +BS EXT: No edema. 2+ DP. No rashes NEURO: Nonfocal Internal Medicine: Result - Labs CBC & Chem 7: 08/28/17 04:46 08/28/17 04:46 Labs: Short CBC 08/27/17 08/27/17 08/28/17 Range/Units 14:01 20:08 04:46 WBC 3.9 L (4.3-11.1) K/mcL Hgb 10.4 L 10.3 L 10.6 L (12.9-16.9) g/dL Hct 31.2 L 31.3 L 32.4 L (37.5-50.1) % Plt Count 153 (140-400) K/mcL Neutrophils # 2.4 (1.6-8.9) K/mcL BMP 08/28/17 04:46 Sodium 139 Potassium 4.1 Chloride 106 Carbon Dioxide 28 BUN 19 Creatinine 1.13 Glucose 150 H Calcium 8.7 - ABG Interpretation ABG results: PT/INR, D-dimer PT 10.9 Seconds (9.4-12.1) 08/27/17 08:50 Consult Discharge Plan - Plan Referrals: Aidan Szymanski DO [Primary Care Provider] -
[2017-08-28] MEDS ORDERED: Polyethylene Glycol 3350 255 GM POWDER PO ONE (16:01)
[2017-08-28 18:15] LABS: Hemoglobin 10.6 g/dL (12.9-16.9)
[2017-08-29] MEDS: Pantoprazole 40 MG VIAL IVP SCH ×2 (06:35→18:13)
[2017-08-29 07:23] LABS: Basophils % 0.2 %; Eosinophils # 0.1 K/mcL (0.0-0.6); Eosinophils % 2.6 %; Hematocrit 31.9 % (37.5-50.1); Hemoglobin 10.6 g/dL (12.9-16.9); Lymphocytes # 1.2 K/mcL (0.6-4.6); Lymphocytes % 24.9 %; Mean Corpuscular HGB Conc 33.2 g/dL (31.6-35.5); Mean Corpuscular Hemoglobin 30.3 pg (28.0-33.3); Mean Corpuscular Volume 91.1 fL (83.0-100.0); Mean Platelet Volume 9.6 fL (9.4-12.4); Monocytes # 0.6 K/mcL (0.0-1.3); Monocytes % 12.5 %; Neutrophils # 2.8 K/mcL (1.6-8.9); Platelet Count 156 K/mcL (140-400); Red Cell Distribution Width 13.8 % (11.5-14.5); Segmented Neutrophils % 59.8 %
--- NOTE | 2017-08-29 07:29 | Electrocardiograph Report ---
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
[2017-08-29 07:35] LABS: BUN/Creatinine Ratio 15 (6-26); Blood Urea Nitrogen 17 mg/dL (8-23); Calcium 8.9 mg/dL (8.6-10.3); Carbon Dioxide 25 mEq/L (23-29); Chloride 106 mEq/L (98-107); Glucose 140 mg/dL (70-105); Magnesium 2.1 mg/dL (1.6-2.6); Osmolality,Calculated 290 (280-300); Potassium 4.1 mEq/L (3.5-5.1); Sodium 138 mEq/L (136-145); eGFR For African Americans > 60 (> 60); eGFR For Non-African Americans > 60 (> 60)
[2017-08-29] MEDS: Insulin LISPRO 300 UNITS/3 ML VIAL SQ SCH ×4 (07:52→20:49)
[2017-08-29] MEDS: Potassium Citrate 10 MEQ TABLET.ER PO SCH ×2 (08:26→20:49)
[2017-08-29] MEDS: Isosorbide MONOnitrate (24 HR) 60 MG TAB.ER.24H PO SCH (08:26)
[2017-08-29] MEDS: Metoprolol XL (24 HR) Succ 50 MG TAB.ER.24H PO SCH (08:26)
[2017-08-29] MEDS: Multivit/Ca/Min/Fe/FA 1 TAB TABLET PO SCH (08:26)
[2017-08-29] MEDS: Spironolactone 25 MG TABLET PO SCH (08:26)
--- NOTE | 2017-08-29 09:23 | Internal Med Progress Note ---
Date of Encounter: 08/29/17 Time of Encounter: 09:22 - Assessment and plan (1) Lower gastrointestinal hemorrhage Current Visit: Yes Status: Acute Assessment and plan: Colonoscopy plan this morning. Trend H&H. Hold aspirin and Plavix. She takes naproxen daily as well for arthritis. Continue PPI. (2) Coronary artery disease Current Visit: Yes Status: Chronic Assessment and plan: Continue statin. The patient takes a beta makayla as well. Holding aspirin and Plavix. Qualifiers: Coronary Disease-Associated Artery/Lesion type: [place] artery [place] vs. transplanted heart: [place] heart Associated angina: without angina Qualified Code(s): I25.10 - Atherosclerotic heart disease of [place] coronary artery without angina pectoris (3) Diabetes mellitus Current Visit: Yes Status: Chronic Assessment and plan: Continue insulin sliding scale. Continue Accu-Cheks. Qualifiers: Diabetes mellitus type: type 2 Diabetes mellitus fci insulin use: without fci use Diabetes mellitus complication status: with circulatory complication Diabetes mellitus complication detail: with other circulatory complications Qualified Code(s): E11.59 - Type 2 diabetes mellitus with other circulatory complications (4) Essential hypertension Current Visit: Yes Status: Chronic Assessment and plan: Patient's blood pressure is borderline. He is already received his beta makayla , lisinopril, spironolactone. His blood pressure now is borderline. We will continue to monitor. (5) DVT prophylaxis Current Visit: Yes Status: Acute Assessment and plan: SCDs given GI bleed. - Subjective Interval history: Patient was seen and examined. No acute events. Plans for colonoscopy this morning. Admitted for GI bleed. Hemodynamically stable. Has been seeing bright red blood per rectum for about 2 days. Takes aspirin and Plavix. Hemoglobin on admission was 11.4. Previous hemoglobin back in 2014 was 14.9. Hemoglobin this morning is 10.6 again this morning - Constitutional Vitals: Temp Pulse Resp BP Pulse Ox 97.7 F 61 17 121/71 97 08/29/17 07:28 08/29/17 07:28 08/29/17 07:28 08/29/17 07:28 08/29/17 08:34 General appearance: Present: cooperative, A&O X 3, answers questions appropriately Exam: GEN: NAD CVS: RRR. S1, S2, No m/r/g RESP: CTAB ABD: Soft, NT, ND, +BS EXT: No edema. 2+ DP. No rashes NEURO: Nonfocal Internal Medicine: Result - Labs CBC & Chem 7: 08/29/17 06:27 08/29/17 06:27 Labs: Short CBC 08/28/17 08/29/17 Range/Units 17:56 06:27 WBC 4.7 (4.3-11.1) K/mcL Hgb 10.6 L 10.6 L (12.9-16.9) g/dL Hct 33.0 L 31.9 L (37.5-50.1) % Plt Count 156 (140-400) K/mcL Neutrophils # 2.8 (1.6-8.9) K/mcL BMP 08/29/17 06:27 Sodium 138 Potassium 4.1 Chloride 106 Carbon Dioxide 25 BUN 17 Creatinine 1.11 Glucose 140 H Calcium 8.9 - ABG Interpretation ABG results: PT/INR, D-dimer PT 10.9 Seconds (9.4-12.1) 08/27/17 08:50 Consult Discharge Plan - Plan Referrals: Aidan Szymanski DO [Primary Care Provider] - (have patient call and schedule his own appointment)
[2017-08-29] MEDS ORDERED: Lidocaine -MPF 2% 2 ML VIAL ONE (12:38)
[2017-08-29] MEDS ORDERED: *HR* Propofol 200 MG/20 ML VIAL IVP ONE (12:38)
--- NOTE | 2017-08-29 13:08 | Anesthesia Evaluation PreOp ---
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 History: Denies Any Significant HX Other Medical History: Diabetes Type II, GERD (mild) Anesthesia History: No Prior Anesthetic Complications, Past Anesthesia (Had colonoscopy over 10 year.) Alcohol Use: none Drug use: none Medications and Allergies Allopurinol [Zyloprim 100 MG] 100 mg PO DAILY 08/27/17 [History] Aspirin Enteric Coated [Aspirin EC] 325 mg PO DAILY 08/27/17 [History] Atorvastatin [Lipitor] 10 mg PO HS 08/27/17 [History] Clopidogrel [Plavix] 75 mg PO DAILY 08/27/17 [History] Isosorbide MONOnitrate (24 HR) [Imdur] 60 mg PO DAILY 08/27/17 [History] Lisinopril [Zestril] 5 mg PO DAILY 08/27/17 [History] Lutein 20 mg PO DAILY 08/27/17 [History] Metoprolol Succinate [Toprol Xl] 50 mg PO DAILY 08/27/17 [History] Multivit-Min/FA/Lycopen/Lutein [Adults 50+ Multivitamin Tablet] 1 tab PO DAILY 08/27/17 [History] Naproxen Sodium [All Day Pain Relief] 440 mg PO DAILY 08/27/17 [History] Potassium Citrate [Urocit-K] 1 tab PO BID 08/27/17 [History] Spironolactone [Aldactone] 12.5 mg PO DAILY 08/27/17 [History] metFORMIN [Glucophage] 500 mg PO BIDWM 08/27/17 [History] 3 Allergy/AdvReac Type Severity Reaction Status Date / Time Hydromorphone [From Dilaudid] AdvReac Vomiting Verified 08/27/17 08:37 morphine AdvReac See Verified 08/27/17 08:37 Comments Oxycodone [From Percocet] AdvReac Hallucinati Verified 08/27/17 08:37 ng - Meds/Allergy Pre-op Review Medications Reviewed: Yes Allergies Reviewed: Yes Beta Blockers on Current Med List: Yes (metoprolol 0826) Anesthesia Results - Labs 08/29/17 06:27 08/29/17 06:27 - Imaging EKG: report reviewed (sinus rhythm, old inf. [place]) Anesthesia Exam Selected Entries 08/29/17 12:52 Temperature 97.4 F L Pulse Rate 67 Respiratory Rate 16 Blood Pressure 123/61 O2 Sat by Pulse Oximetry 97 Weight: 85 kg NPO (# of Hours): over 8 hours - HEENT Pupil (Motor): Pupils equal Mallampati: II Teeth: Normal, Missing Oral Opening: Greater than 3 - Cardiac Rhythm: Regular Murmur: None - Pulmonary Breath Sounds: bilateral Clear Respiratory Effort: Symmetrical Anesthesia Assess/Plan ASA Score: 3 Modified [place] Scale for Level of Consciousness: Cooperative, oriented, and tranquil Anesthetic Plan: MAC Monitoring Plan: Standard Monitors Recovery Plan: Other (Admitted for lower GI bleed. Hgb stable at 10. Discussed MAC anesthesia. Agreed to proceed.)
[2017-08-29 17:31] LABS: Hematocrit 32.4 % (37.5-50.1); Hemoglobin 10.5 g/dL (12.9-16.9)
[2017-08-30 06:00] LABS: Basophils % 0.5 %; Eosinophils # 0.1 K/mcL (0.0-0.6); Hematocrit 29.8 % (37.5-50.1); Hemoglobin 9.8 g/dL (12.9-16.9); Immature Granulocytes % 0.2 % (0-4); Lymphocytes % 23.7 %; Mean Corpuscular HGB Conc 32.9 g/dL (31.6-35.5); Mean Corpuscular Hemoglobin 29.8 pg (28.0-33.3); Mean Corpuscular Volume 90.6 fL (83.0-100.0); Mean Platelet Volume 9.9 fL (9.4-12.4); Monocytes # 0.6 K/mcL (0.0-1.3); Monocytes % 12.8 %; Neutrophils # 2.6 K/mcL (1.6-8.9); Platelet Count 158 K/mcL (140-400); Red Blood Count 3.29 M/mcL (4.19-5.50); Red Cell Distribution Width 13.5 % (11.5-14.5); Segmented Neutrophils % 59.8 %
[2017-08-30] MEDS: Pantoprazole 40 MG VIAL IVP SCH (06:04)
[2017-08-30 06:21] LABS: BUN/Creatinine Ratio 18 (6-26); Blood Urea Nitrogen 23 mg/dL (8-23); Calcium 8.8 mg/dL (8.6-10.3); Carbon Dioxide 24 mEq/L (23-29); Chloride 107 mEq/L (98-107); Glucose 154 mg/dL (70-105); Magnesium 2.2 mg/dL (1.6-2.6); Osmolality,Calculated 295 (280-300); Potassium 4.4 mEq/L (3.5-5.1); Sodium 139 mEq/L (136-145); eGFR For African Americans > 60 (> 60); eGFR For Non-African Americans 57 (> 60)
[2017-08-30 08:16] VITALS: BP 134/72
[2017-08-30] MEDS: Spironolactone 25 MG TABLET PO SCH (08:43)
[2017-08-30] MEDS: Multivit/Ca/Min/Fe/FA 1 TAB TABLET PO SCH (08:43)
[2017-08-30] MEDS: Insulin LISPRO 300 UNITS/3 ML VIAL SQ SCH (08:43)
[2017-08-30] MEDS: Isosorbide MONOnitrate (24 HR) 60 MG TAB.ER.24H PO SCH (08:43)
[2017-08-30] MEDS: Potassium Citrate 10 MEQ TABLET.ER PO SCH (08:43)
[2017-08-30] MEDS: Metoprolol XL (24 HR) Succ 50 MG TAB.ER.24H PO SCH (08:43)
--- NOTE | 2017-08-30 08:52 | Discharge Summary ---
- NOTES TO OUTPATIENT PROVIDER Notes to Outpatient Provider: Spoke to Dr. Stoll his cable tool operator about the patient be on aspirin and Plavix and whether he wanted to stop those. Dr. Stoll prefers that the patient stays on both aspirin 325 mg and Plavix 75 mg. We will have labs checked on Monday for blood counts. And go from there. I did advise the patient to stop his naproxen and to take Tylenol as needed for his arthritis. Orders not resulted at time of discharge: Pending orders 08/30/17 17:45 Hemoglobin and Hematocrit [HEME] Q12H 08/31/17 05:45 Hemoglobin and Hematocrit [HEME] Q12H Date of Encounter: 08/30/17 Time of Encounter: 08:49 - Discharge Diagnosis (1) Lower gastrointestinal hemorrhage Priority: Primary Status: Acute (2) Coronary artery disease Priority: Secondary Status: Chronic Qualifiers: Coronary Disease-Associated Artery/Lesion type: [place] artery [place] vs. transplanted heart: [place] heart Associated angina: without angina Qualified Code(s): I25.10 - Atherosclerotic heart disease of [place] coronary artery without angina pectoris (3) Diabetes mellitus Priority: Secondary Status: Chronic Qualifiers: Diabetes mellitus type: type 2 Diabetes mellitus snf insulin use: without snf use Diabetes mellitus complication status: with circulatory complication Diabetes mellitus complication detail: with other circulatory complications Qualified Code(s): E11.59 - Type 2 diabetes mellitus with other circulatory complications (4) Essential hypertension Priority: Secondary Status: Chronic Hospital course: Mr. Sr is a 67 year old male with history of coronary artery disease status post PCI and stents on aspirin and Plavix presented to the ER with complaints of bright red bleeding per rectum. Symptoms began the day prior to admission and he said he had about 8 episodes of bright red blood per rectum. He had no abdominal pain. He reports similar symptoms 4 weeks back which spontaneously resolved within a few hours. He went to see his primary care provider after that and was told that it could possibly be from an esophageal tear. The patient was admitted through the emergency department due to that. Hemoglobin was 11.4 on admission and it went down to 9.8 upon discharge. He has no episodes of bleeding while he was in the hospital. He was seen by GI and a colonoscopy showed internal hemorrhoids and diverticulosis but no actual bleed. The patient was hemodynamically stable throughout. The patient takes aspirin , Plavix for his coronary artery disease. I did discuss this with Dr. Stoll and he recommended that the patient stays on those given the critical number of stents and their locations that the patient has. The patient also takes naproxen and I recommended patient takes Tylenol for his arthritis. He is going to get discharged on 08/30 with labs recommended on Monday 09/04. The patient was stable for discharge on 08/30. - Time Spent with Patient Total time spent providing and/or coordinating discharge services: Greater than 30 minutes - Discharge Medications Home Medications: Allopurinol [Zyloprim 100 MG] 100 mg PO DAILY 08/27/17 [History] Aspirin Enteric Coated [Aspirin EC] 325 mg PO DAILY 08/27/17 [History] Atorvastatin [Lipitor] 10 mg PO HS 08/27/17 [History] Clopidogrel [Plavix] 75 mg PO DAILY 08/27/17 [History] Isosorbide MONOnitrate (24 HR) [Imdur] 60 mg PO DAILY 08/27/17 [History] Lisinopril [Zestril] 5 mg PO DAILY 08/27/17 [History] Lutein 20 mg PO DAILY 08/27/17 [History] Metoprolol Succinate [Toprol Xl] 50 mg PO DAILY 08/27/17 [History] Multivit-Min/FA/Lycopen/Lutein [Adults 50+ Multivitamin Tablet] 1 tab PO DAILY 08/27/17 [History] Potassium Citrate [Urocit-K] 1 tab PO BID 08/27/17 [History] Spironolactone [Aldactone] 12.5 mg PO DAILY 08/27/17 [History] metFORMIN [Glucophage] 500 mg PO BIDWM 08/27/17 [History] Allergies/Adverse Reactions: 3 Allergy/AdvReac Type Severity Reaction Status Date / Time Hydromorphone [From Dilaudid] AdvReac Vomiting Verified 08/27/17 08:37 morphine AdvReac See Verified 08/27/17 08:37 Comments Oxycodone [From Percocet] AdvReac Hallucinati Verified 08/27/17 08:37 ng Date of admission: 08/27/17 10:32 Primary care physician: Aidan Bobo Colopy Consults: 08/27/17 18:41 Consult to Gastroenterology [CONS] Routine Consulting Provider: Gastroenterology Patricia Reason for Consult: GI bleed Call Completed: No - Constitutional Vitals: Temp Pulse Resp BP Pulse Ox 98.0 F 71 16 134/72 96 08/30/17 08:14 08/30/17 08:14 08/30/17 08:14 08/30/17 08:14 08/30/17 08:14 General appearance: Present: cooperative, A&O X 3, answers questions appropriately Exam: GEN: NAD CVS: RRR. S1, S2, No m/r/g RESP: CTAB ABD: Soft, NT, ND, +BS EXT: No edema. 2+ DP. No rashes NEURO: Nonfocal - Patient Status Disposition: Home, Self-Care Condition: Fair Overall status at discharge: patient is progressing back to baseline - Ambulatory Orders Ambulatory Orders: Complete Blood Count [HEME] Time Frame: 09/04/17, Facility: [facility], Location: Lab - Discharge Instructions Follow Up With: ColAidan diaz DO [Primary Care Provider] - (have patient call and schedule his own appointment) - Diet and Activity Activity: increase activity as tolerated Diet: diabetic diet, low salt diet
== END 2017-08-30 09:48 | disposition home or self-care (01) ==
LOC: EMEROO 08:31 → 2ANU 08:31
PROVIDERS: ADMIT Internal Medicine; ATTEND Internal Medicine